=== PATIENT | female | born 1950 | race Asian ===

== ENCOUNTER 2020-07-13 10:45 | Emergency (ER) | payer SELFPAY ==
[~2020-07-13] VITALS: Ht 152.4 cm; Wt 66.7 kg
[2020-07-13 10:50] VITALS: Ht 152.4 cm; Wt 66.7 kg
[2020-07-13 13:17] LABS: CARBON DIOXIDE 28.2 mmol/L (21-32); CHLORIDE SERUM 92 mmol/L (98-107); CREATININE SERUM 0.7 mg/dL (0.6-1.0); GFR1 > 60 mL/min; GLUCOSE SERUM 105 mg/dL (74-106); POTASSIUM SERUM 4.1 mmol/L (3.5-5.1); SODIUM SERUM 128 mmol/L (136-145)
[2020-07-13 14:00] VITALS: BP 128/71
[2020-07-13 14:23] LABS: PLATELET COUNT 278 x10^3mcL (179-408); RED CELL DISTRIBUTION WIDTH 12.4 % (12.3-17.7)
[2020-07-13 14:32] LABS: BASOPHIL % 2.1 % (0.2-1.3)
== END 2020-07-13 14:31 | disposition home or self-care (01) ==
LOC: ED 10:45
PROVIDERS: Emergency Medicine
DX: U07.1 COVID-19 (principal); I10 Essential (primary) hypertension; E78.00 Pure hypercholesterolemia, unspecified; Z90.710 Acquired absence of both cervix and uterus
CPT/HCPCS: U0003